=== PATIENT | male | born 1970 | race Caucasian/White ===

== ENCOUNTER 2020-08-01 14:10 | Observation (INO) | payer OTHER ==
[2020-08-01 15:04] LABS: #Basophils 0.1 thou/uL (0.0-0.2); #Eosinphils 0.1 thou/uL (0.0-0.7); #Lymphocytes 1.5 thou/uL (1.20-3.40); #Monocytes 0.5 thou/uL (0.11-0.59); #Neutrophils 3.3 thou/uL (1.40-6.50); %Basophils 1.1 % (0.0-1.0); %Eosinophils 1.6 % (0.0-10.0); %Lymphocytes 27.2 % (21.0-51.0); %Monocytes 8.9 % (0.0-10.0); %Neutrophils 61.2 % (42.0-75.0); Hemoglobin 16.3 g/dL (14.0-18.0); Mean Corpuscular Hemoglobin 31.8 pg (27.0-31.0); Mean Corpuscular Volume 93.5 fL (78.0-98.0); Platelet Count 226 thou/uL (130-400); RBC Distribution Width 13.5 % (11.5-14.5); Red Blood Cell (RBC) Count 5.12 mill/uL (4.70-6.10); White Blood Cell (WBC) Count 5.4 thou/uL (4.8-10.8)
[2020-08-01 15:24] LABS: ALT (SGPT) 38 U/L (8-55); AST (SGOT) 34 U/L (5-34); Albumin 4.2 g/dL (3.5-5.0); Alkaline Phosphatase 87 U/L (40-110); Anion Gap 17 mmol/L (10-20); BUN (Urea Nitrogen) 14 mg/dL (8.9-20.6); Bilirubin, Total 0.5 mg/dL (0.2-1.2); Calc. Creatinine Clearance 0 mL/min (70-130); Calcium 9.3 mg/dL (7.8-10.44); Carbon Dioxide 23 mmol/L (22-29); Chloride 103 mmol/L (98-107); Globulin 3.5 g/dL (2.4-3.5); Glucose 164 mg/dL (70-105); Potassium 3.9 mmol/L (3.5-5.1); Protein, Total 7.7 g/dL (6.0-8.3); Sodium 139 mmol/L (136-145)
--- NOTE | 2020-08-01 16:06 | RAD ---
XR Chest 1 View Portable History: Syncope Comparison: None. Findings: Heart size upper limits of normal. No significant pulmonary edema. No pneumothorax. No effu colton. No acute osseous abnormality. Impression: No acute intrathoracic abnormality.
--- NOTE | 2020-08-01 19:00 | PDOC.FPRHP ---
- History of Present Illness Chief Complaint: Chest pain, dizziness History of Present Illness: 50yo M presented tonight for chest pain and episode of lightheadedness. Pt states that last night he drank heavily and didn't not wear his CPAP. He notes historically when he does not wear his CPAP and he has multiple apneic spells he wakes up with left upper chest pain. He noticed this pain upon waking this morning and notes it was a little worse that what he would consider typical. He denies any other symptoms upon waking. Today while driving he noticed a 5 minute period of lightheadedness and feeling clammy. He got concerned and went to ED for evaluation. He notes a hx of significant PVC's that he follows with a car diologist for. He has had a failed ablation treatment about 5 years ago. He notes previous stress tests which were normal. He has had an EF as low as 40% on previous echo's but states his most recent one >1 year ago his EF improved but does not recall the number. Pt was experiencing a significant number of PVC's in the ED, at points almost every other beat. He denies experiencing any worsening chest pain, lightheadedness, shortness of breath, or palpitations with this. - Allergies/Adverse Reactions Allergies Allergy/AdvReac Type Severity Reaction Status Date / Time No Known Allergies Allergy Verified 08/02/20 06:19 - History PMHx: Reactive arthritis, HFrEF (resolved?), Obstructive sleep apnea PSHx: knee replacement w/ revisions, left finger, cyst removal FHx: Non contributory Social: Denies tobacco or drugs. Drinks 32 oz of liquor daily - Review of Systems General: denies: fever/chills, weight/appetite/sleep changes Eyes: denies: vision changes, other ENT: denies: nasal congestion, rhinorrhea Respiratory: denies: cough, shortness of breath Cardiovascular: reports: chest pain. denies: palpitation, edema Gastrointestinal: denies: nausea, vomiting, abdominal pain Genitourinary: denies: dysuria, polyuria Skin: denies: rashes, lesions Musculoskeletal: denies: pain, tenderness, stiffness Neurological: reports: other (lightheadedness). denies: numbness, syncope Psychological: reports: other (substance abuse) - Vital signs BP: 136/88, Pulse: 107, Resp: 18, Pain: 0, O2 sat: 98 on (Room Air), Wt: 108kg - Physical Exam Constitutional: NAD, awake, alert and oriented, well developed HEENT: EOMI, MMM Neck: supple, FROM Heart: normal S1/S2, no murmurs/rubs/gallops, no edema -Heart: Sinus rhythm with irregular but frequent PVC's Lungs: CTAB, no respiratory distress, good air movement Abdomen: soft, non-tender, bowel sounds present Musculoskeletal: normal structure, normal tone, ROM grossly normal Neurological: no focal deficit Skin: no rash/lesions, capillary refill <2 seconds Heme/Lymphatic: no unusual bruising or bleeding Psychiatric: normal mood and affect, intact recent and remote memory FMR H&P: Results - Labs Result Diagrams: 08/01/20 14:45 08/01/20 14:45 Lab results: WBC 5.4 thou/uL (4.8-10.8) 08/01/20 14:45 Hgb 16.3 g/dL (14.0-18.0) 08/01/20 14:45 Hct 47.8 % (42.0-52.0) 08/01/20 14:45 MCV 93.5 fL (78.0-98.0) 08/01/20 14:45 Plt Count 226 thou/uL (130-400) 08/01/20 14:45 Neutrophils % 61.2 % (42.0-75.0) 08/01/20 14:45 Sodium 139 mmol/L (136-145) 08/01/20 14:45 Potassium 3.9 mmol/L (3.5-5.1) 08/01/20 14:45 Chloride 103 mmol/L (98-107) 08/01/20 14:45 Carbon Dioxide 23 mmol/L (22-29) 08/01/20 14:45 BUN 14 mg/dL (8.9-20.6) 08/01/20 14:45 Creatinine 1.25 mg/dL (0.7-1.3) 08/01/20 14:45 Glucose 164 mg/dL (70-105) H 08/01/20 14:45 Calcium 9.3 mg/dL (7.8-10.44) 08/01/20 14:45 Total Bilirubin 0.5 mg/dL (0.2-1.2) 08/01/20 14:45 AST 34 U/L (5-34) 08/01/20 14:45 ALT 38 U/L (8-55) 08/01/20 14:45 Alkaline Phosphatase 87 U/L (40-110) 08/01/20 14:45 Serum Total Protein 7.7 g/dL (6.0-8.3) 08/01/20 14:45 Albumin 4.2 g/dL (3.5-5.0) 08/01/20 14:45 - EKG Interpretation EKG: Heart 90 bpm, sinus rhythm with occasional PVCs, voltage criteria for LVH, normal axis, T wave inversion in V6 and 1 aVL, overall impression is nonspecific. - Radiology Interpretation Chest x-ray Status: report reviewed by me (Borderline cardiomegaly) FMR H&P: A/P - Problem List (1) Chest pain Current Visit: Yes Status: Acute Code(s): R07.9 - CHEST PAIN, UNSPECIFIED (2) Alcohol abuse Current Visit: Yes Status: Acute Code(s): F10.10 - ALCOHOL ABUSE, UNCO MPLICATED (3) Obstructive sleep apnea Current Visit: Yes Status: Acute Code(s): G47.33 - OBSTRUCTIVE SLEEP APNEA (ADULT) (PEDIATRIC) (4) Elevated troponin Current Visit: Yes Status: Acute Code(s): R77.8 - OTHER SPECIFIED ABNORMALITIES OF PLASMA PROTEINS FMR H&P: Upper Level - Plan Chest pain - ACS r/o, elevated troponin - Troponin 0.04 initially, presumed to be representing demand ischemia likely 2/2 severe apneic episodes vs significant PVC frequency - Will continue to trend - Anticoagulate if becomes positive or sharp upward trend - No signs of fluid overload, in setting of recent excessive EtOH intake and tachycardia will gently fluid resuscitate and observe response - TTE - Exercise cardiolite stress - Telemetry monitoring Obstructive sleep apnea - CPAP nightly and when napping Alcohol abuse - No hx of withdrawal - ASE protocol to monitor - Encourage cessation VTE: SCD IVF: LR @ 200 x 1L Diet: HH Code: Full PCP: OOT Dispo: Admit to tele obs for ACS r/o and rhythm monitoring. Date/Time: 08/01/20 1900 Jac Morrison DO - PGY2 Addendum - Attending - Attending Attestation Date/Time: 08/01/202007 I personally evaluated the patient and discussed the management with Dr. Morrison. I agree with the History, Examination, Assessment and Plan documented above with any addition or exceptions noted below. Will trend cardiac enzymes. Monitor pvc's on tele. Get stress test and echo. Start ASE protocol.
[2020-08-01 19:08] LABS: Troponin I 0.049 ng/mL (< 0.028)
[2020-08-01] MEDS ORDERED: Acetaminophen 650 MG Suppository PR PRN (20:26)
[2020-08-01] MEDS ORDERED: Ondansetron ODT 4 MG TAB PO PRN (20:26)
[2020-08-01] MEDS ORDERED: Acetaminophen 325 MG TAB PO PRN (20:26)
[2020-08-01] MEDS ORDERED: Nitroglycerin 0.4 MG TAB (25 Tab Bottle) SL PRN (20:26)
[2020-08-01] MEDS ORDERED: Calcium Carbonate 500 MG ChewTAB PO PRN (20:26)
[2020-08-01] MEDS ORDERED: Sodium Chloride 0.9% 1,000 ML IV SCH (20:30)
[2020-08-01 22:27] LABS: Troponin I 0.056 ng/mL (< 0.028)
[2020-08-01 22:32] VITALS: BMI 30.8
[2020-08-02 01:13] LABS: Troponin I 0.059 ng/mL (< 0.028)
[2020-08-02 02:14] LABS: SARS-CoV-2 PCR by NAA Not Detected (NotDetected)
[2020-08-02 03:55] LABS: Hemoglobin A1c 5.3 % (4.0-6.0)
[2020-08-02 04:11] LABS: Cardiac Risk 3.1 (Less than 4.5)
[2020-08-02 04:16] LABS: Troponin I 0.048 ng/mL (< 0.028)
--- NOTE | 2020-08-02 05:28 | PDOC.FM ---
- Subjective Subjective: Patient is resting comfortably in bed. Reports that his chest pain is gone. He notes that when he takes his CPAP off at night while he is sleeping, he wakes up with some chest pain on the left. The night before last, he did not put it on at all due to drinking. He denies chest pain, abdominal pain, fever/chills. On tele patient has been having PVCs, about 22/min since arriving on the floor this morning. - Objective MAR Reviewed: Yes Vital Signs & Weight: Vital Signs (12 hours) Temp Pulse Resp BP Pulse Ox 08/01/20 22:38 98.2 F 103 H 18 154/107 H 99 Weight Weight 108.862 kg Result Diagrams: 08/01/20 14:45 08/01/20 14:45 Phys Exam - Physical Examination Constitutional: NAD HEENT: PERRLA, moist MMs Respiratory: no wheezing, clear to auscultation bilateral Cardiovascular: RRR, no significant murmur Gastrointestinal: soft, non-tender Musculoskeletal: no edema Neurological: non-focal, moves all 4 limbs Psychiatric: normal affect, A&O x 3 Skin: no rash Dx/Plan - Plan Plan: NSTEMI II - ACS r/o Presumed to be representing demand ischemia likely 2/2 severe apneic episodes vs significant PVC frequency Trops 0.04>0.49>0.056>0.048 PVCs this mornig 22/min No signs of fluid overload, in setting of recent excessive EtOH intake and tachycardia will gently fluid resuscitate and observe response Risk stratified with lipids, a1c and TSH - all wnl - Echo ordered, per patient history of EF 40% that improved, has host/hostess restaurant in [place] - Exercise cardiolite stress - Will consult cardiology - Telemetry monitoring Obstructive sleep apnea - CPAP nightly and when napping Alcohol abuse - No hx of withdrawal - ASE protocol to monitor - Encourage cessation Hx of Recurrent Infection with knee - resume abx Spondyloarthropathy - sees Tie Loader in [place] - resume home abx VTE: SCD IVF: LR @ 200 x 1L, then SL Diet: HH Code: Full PCP: OOT Dispo: Admitted to tele obs for ACS r/o and rhythm monitoring. LOS<48 hours pending testing results. Addendum - Attending - Attending Attestation Date/Time: 08/02/20 1228 I personally evaluated the patient and discussed the management with Dr. Mcleod. I agree with the History, Examination, Assessment and Plan documented above with any addition or exceptions noted below. Pt with very frequent PVC's. Consulting cardiology. Ordered stress test and echo.
[2020-08-02] MEDS ORDERED: Loratadine 10 MG TAB PO PRN (08:53)
[2020-08-02] MEDS ORDERED: traZODone HCl 50 MG TAB PO PRN (09:25)
[2020-08-02] MEDS ORDERED: Diazepam 5 MG TAB PO PRN (09:37)
[2020-08-02] MEDS ORDERED: Aspirin Chewable 81 MG TAB PO SCH (14:45)
[2020-08-02] MEDS: Aspirin Chewable 81 MG TAB PO SCH (15:10)
--- NOTE | 2020-08-02 16:58 | NM ---
MYOCARDIAL PERFUSION SCAN WITH SPECT IMAGING: History: Chest pain Technique: The examination was performed using 30.1 mCi 99M Technetium Sestamibi on the stress and 10 .5 mCi on the resting images. FINDINGS: This shows small fixed apical defect and some diminished perfusion which is symmetric between the str ess and rest images involving the inferior wall. I do not see any definite ischemic change. Ventricul ar chamber appears slightly dilated. WALL MOTION: There is generalized hypokinesis demonstrated. LEFT VENTRICULAR EJECTION FRACTION: The calculated LVEF is 28%. IMPRESSION: Global hypokinesis with markedly diminished ejection fraction of 28%. Correlation with echocardiogram is recommended. POS: OFF
[2020-08-02] MEDS: Lorazepam 1 MG TAB PO PRN ×2 (17:39→22:08)
[2020-08-02] MEDS ORDERED: Communication Order-Pharmacy FS SCH (17:45)
--- NOTE | 2020-08-02 18:38 | CON ---
DATE OF CONSULTATION: REASON FOR CONSULTATION: Presyncope. HISTORY OF PRESENT ILLNESS: Mr. Mullen is a 50-year-old gentleman, who was passing through to [place], [place]. He states he became lightheaded and dizzy. He pulled over the side of the road and did not feel well. Decided to proceed to the emergency room. He was subsequently admitted for presyncope. Mr. Mullen does have an extensive cardiac history. He has a history of PVCs, status post ablation. He also has been seen and evaluated by farm implement mechanic in [place], Dr. Jauregui. He is recently underwent a noninvasive stress study with LVEF 28% and an apical scar. PAST MEDICAL HISTORY: Alcohol abuse, sleep apnea, PVCs, arthritis, knee replacement. SOCIAL HISTORY: No current tobacco use. He does drink 32 ounces of liquor per day. REVIEW OF SYSTEMS: A 10-point review of systems is reviewed as above, otherwise negative. PHYSICAL EXAMINATION: VITAL SIGNS: Blood pressure 139/88, pulse 64, temperature 98.1. GENERAL: Patient is a pleasant male, who is in no acute distress. The patient appears his stated age. NEUROLOGIC: The patient is alert and oriented x3 with no focal neurologic deficits. HEENT: Sclerae without icterus. Mouth has moist mucous membranes with normal pallor. NECK: No JVD. Carotid upstroke brisk. No bruits bilaterally. LUNGS: Clear to auscultation with unlabored respirations. BACK: No scoliosis or kyphosis. CARDIAC: Regular rate and rhythm with normal S1 and S2. No S3 or S4 noted. No significant rubs, murmurs, thrills, or gallops noted throughout the precordium. PMI is not displaced. There is no parasternal heave. ABDOMEN: Soft, nontender, nondistended. No peritoneal signs present. No hepatosplenomegaly. No abnormal striae. EXTREMITIES: 2+ femoral and 2+ dorsalis pedis pulses. No cyanosis, clubbing, or edema. SKIN: No gross abnormalities. PERTINENT LABORATORY DATA: Hemoglobin 16.3, hematocrit 47.8, platelet count 226. Peak troponin 0.059. Echo Doppler shows LVEF 30% to 35%. IMPRESSION: 1. Dizziness, lightheadedness, and presyncope. 2. New onset cardiomyopathy. 3. Alcohol abuse. 4. History premature ventricular contractions. RECOMMENDATIONS: Etiology to patient's current is unknown. He certainly may have had PVCs or VT that may have caused his current symptoms. 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 He did have a scar noted on his recent stress test. Discussed proceeding with coronary angiography versus proceed with coronary angiography in [place]. The patient to proceed with coronary angiography here given his markedly diminished LVEF. I discussed procedure in full detail with Mr. Mullen. Risks include not limited to the following: , stroke, MN, need for emergency surgery, loss of limb, bleeding, and infection, as well as a reaction to the dye causing kidney failure and needing long-term dialysis. I also discussed the risks of PCI to include all of the above including coronary dissection and perforation in addition to acute stent thrombosis and restenosis. All questions were answered. Given the above, the patient agreed to proceed with procedure. Also discussed drug coated with nondrug coated stent placement. There were no contraindications to proceed if needed. We will also recommend LifeVest. We will also recommend iron studies and TSH. Job ID: [id number]
[2020-08-02] MEDS ORDERED: Montelukast Sodium 10 mg Tablet PO SCH (21:00)
[2020-08-02] MEDS: Sodium Chloride 0.9% 1,000 ML IV SCH (22:07)
--- NOTE | 2020-08-03 05:48 | PDOC.FM ---
- Subjective Subjective: No acute overnight events. Continues to have PVCs on tele. No lightheadedness or presyncope. No chest pain. No SOB. Plan for cath today. - Objective Vital Signs & Weight: Vital Signs (12 hours) Temp Pulse Resp BP BP Pulse Ox 08/03/20 03:50 97.6 F 51 L 20 140/105 H 140/105 H 98 08/03/20 01:57 98 08/02/20 22:03 98.9 F 95 18 139/77 96 08/02/20 21:54 139/77 Weight Weight 108.862 kg I&O: 08/01/20 08/02/20 08/03/20 06:59 06:59 06:59 Intake Total 700 Balance 700 Result Diagrams: 08/03/20 08:17 08/03/20 08:17 Phys Exam - Physical Examination Constitutional: NAD HEENT: moist MMs, sclera anicteric Neck: supple Respiratory: no wheezing, no rales, clear to auscultation bilateral Cardiovascular: RRR (with frequent PVCs) Gastrointestinal: soft, non-tender, no distention, positive bowel sounds Musculoskeletal: no edema, pulses present Neurological: non-focal, normal sensation, moves all 4 limbs Psychiatric: normal affect, A&O x 3 Skin: no rash, normal turgor, cap refill <2 seconds Dx/Plan - Plan Plan: NSTEMI II - ACS r/o Presumed to be representing demand ischemia likely 2/2 severe apneic episodes vs significant PVC frequency Trops 0.04>0.49>0.056>0.048 No signs of fluid overload Risk stratified with lipids, a1c and TSH - all wnl - Cardiology consulted, plan for cath today - Will likely need life vest upon discharge Obstructive sleep apnea - CPAP nightly and when napping Alcohol abuse - No hx of withdrawal - ASE protocol to monitor, has been wnl - Encourage cessation Hx of Recurrent Infection with knee - resume abx Spondyloarthropathy - sees Office Machinery Or Equipment Installer in [place] - resume home abx VTE: SCD IVF: SL Diet: HH Code: Full PCP: OOT Dispo: Pending cardiac workup Addendum - Attending - Attending Attestation Date/Time: 08/03/20 0001 I personally evaluated the patient and discussed the management with Dr. Soliz. I agree with the History, Examination, Assessment and Plan documented above with any addition or exceptions noted below. Awaiting cards recs. per patient no stent placed. possible d/c later today.
[2020-08-03] MEDS: Carvedilol 3.125 MG TAB PO SCH ×2 (08:08→18:26)
[2020-08-03 08:33] LABS: #Basophils 0.1 thou/uL (0.0-0.2); #Eosinphils 0.1 thou/uL (0.0-0.7); #Lymphocytes 1.5 thou/uL (1.20-3.40); #Monocytes 0.8 thou/uL (0.11-0.59); %Basophils 0.9 % (0.0-1.0); %Lymphocytes 20.5 % (21.0-51.0); %Monocytes 10.1 % (0.0-10.0); %Neutrophils 67.5 % (42.0-75.0); Hemoglobin 16.9 g/dL (14.0-18.0); Mean Corpuscular HGB CONC 32.7 g/dL (32.0-36.0); Mean Corpuscular Hemoglobin 31.3 pg (27.0-31.0); Mean Corpuscular Volume 95.6 fL (78.0-98.0); Platelet Count 220 thou/uL (130-400); RBC Distribution Width 13.5 % (11.5-14.5); Red Blood Cell (RBC) Count 5.39 mill/uL (4.70-6.10); White Blood Cell (WBC) Count 7.5 thou/uL (4.8-10.8)
[2020-08-03] MEDS ORDERED: Lidocaine 1% (PF) 30 ML VIAL ONE (08:45)
[2020-08-03 08:54] LABS: Anion Gap 12 mmol/L (10-20); BUN (Urea Nitrogen) 13 mg/dL (8.9-20.6); Calc. Creatinine Clearance 117 mL/min (70-130); Calcium 8.9 mg/dL (7.8-10.44); Carbon Dioxide 27 mmol/L (22-29); Chloride 103 mmol/L (98-107); Glucose 127 mg/dL (70-105); Potassium 4.2 mmol/L (3.5-5.1); Sodium 138 mmol/L (136-145)
[2020-08-03] MEDS ORDERED: Heparin 10,000 UNITS/ 10 ML VIAL ONE (08:56)
[2020-08-03] MEDS ORDERED: Verapamil 5 MG/2 ML VIAL ONE (08:56)
[2020-08-03] MEDS ORDERED: Nitroglycerin 100MG/250ML BOT 250 ML ONE (08:56)
[2020-08-03] MEDS ORDERED: Multivit, Chewable SF 1 TAB PO SCH (09:00)
[2020-08-03] MEDS ORDERED: Thiamine 100 MG TAB PO SCH (09:00)
[2020-08-03] MEDS ORDERED: Folic Acid 1 MG TAB PO SCH (09:00)
[2020-08-03] MEDS ORDERED: Cefadroxil Hydrate 250 mg/5 ml Suspensio PO SCH (09:00)
[2020-08-03] MEDS ORDERED: Midazolam HCl 2 mg/2 ml Vial ONE (09:13)
[2020-08-03] MEDS ORDERED: Fentanyl 100 MCG/2 ML VIAL ONE (09:13)
[2020-08-03] MEDS ORDERED: Iopamidol 370 76% 100 ML VIAL ONE (09:27)
[2020-08-03] MEDS ORDERED: Acetaminophen/Codeine 30-300mg Tablet PO PRN ×2 (09:36)
[2020-08-03] MEDS ORDERED: Nitroglycerin 0.4 MG TAB (25 Tab Bottle) SL PRN (09:36)
[2020-08-03] MEDS ORDERED: Sodium Chloride 0.9% 200 ML IV PRN (09:36)
[2020-08-03] MEDS ORDERED: Sodium Chloride 0.9% 1,000 ML IV SCH (09:45)
[2020-08-03] MEDS: Aspirin Chewable 81 MG TAB PO SCH (10:40)
[2020-08-03] MEDS: Lorazepam 1 MG TAB PO PRN (10:43)
[2020-08-03] MEDS ORDERED: CEFADROXIL 1 GM PO SCH (11:15)
[2020-08-03] MEDS: Sodium Chloride 0.9% 1,000 ML IV SCH (11:16)
[2020-08-03 12:44] LABS: Iron 128 ug/dL (65-175); Iron Binding Capacity, Total 425 mcg/dL (261-462)
[2020-08-03 16:29] VITALS: BP 137/63; TEMP 98.1
[2020-08-04] MEDS ORDERED: CEFADROXIL 1 GM PO SCH (09:00)
--- NOTE | 2020-08-04 12:44 | DIS ---
DATE OF ADMISSION: 08/01/2020 DATE OF DISCHARGE: 08/03/2020 RESIDENT: Kdaie Soliz DO ADMITTING ATTENDING: Charmaine Mc MD DISCHARGE ATTENDING: Refugio Perez MD CONSULT: Cardiology, Dr. Elias. PROCEDURES: Echocardiogram, nuclear stress test, and cardiac catheterization. PRIMARY DIAGNOSIS: Non-ST segment elevation myocardial infarction type 2. SECONDARY DIAGNOSES: Obstructive sleep apnea, alcohol abuse, recurrent infection of the knee, spondyloarthropathy, alcoholic cardiomyopathy, premature ventricular contractions. DISCHARGE MEDICATIONS: 1. Singulair 10 mg p.o. at bedtime. 2. Arimidex 0.5 mg p.o. daily. 3. Trazodone 100 mg p.o. at bedtime p.r.n. 4. Enbrel 50 mg subcu q.7 days. 5. Diclofenac/misoprostol 50 mg/200 mcg tablet one p.o. daily. 6. Zyrtec 10 mg p.o. p.r.n. 7. Cefadroxil 1 g p.o. daily. 8. Aspirin 81 mg p.o. daily. 9. Carvedilol 3.125 mg p.o. b.i.d. with meals. 10. Folic acid 1 mg p.o. daily. 11. Thiamine 100 mg p.o. daily. DISCONTINUED MEDICATIONS: None. HPI/HOSPITAL COURSE: Mr. Mullen is a 50-year-old gentleman, who is admitted after experiencing symptoms of chest pain and lightheadedness while driving his vehicle, reports that the evening prior to onset of his symptoms, he drank large amounts of alcohol and did not wear his CPAP to bed. On ER evaluation, his EKG revealed a sinus rhythm with occasional PVCs, left ventricular hypertrophy, and T-wave inversions in V6, I, and aVL. His chest pain had resolved at that time. His troponin was elevated to an indeterminate range and continued to trend upwards slightly peaking at 0.059 before trending back downward. It was suspected that this mildly elevated troponin was most likely due to demand ischemia due to either apnea from not wearing his CPAP or to significant PVC frequency as the patient does report a history of frequent PVCs requiring ablation in the past. A stress test was performed revealing global hypokinesis with an ejection fraction of 28%, as well as a fixed apical defect with diminished perfusion. No definite ischemic changes were seen on the stress test. Because of the decreased ejection fraction on the stress test, an echocardiogram was performed revealing an ejection fraction of 30% to 35% and again hypokinesis of the inferior and anterior wall of the left ventricle. Cardiology was consulted and cardiac catheterization was performed. No interventions were performed, during the cardiac catheterization. On the recommendation of Cardiology, the patient had a LifeVest arranged. Iron studies and TSH were also checked, which were within normal limits. After catheterization and the absence of continued symptoms and after being fitted for a LifeVest, the patient was discharged to home in stable condition. DISPOSITION: Stable. DISCHARGE INSTRUCTIONS: 1. Location: Home. 2. Diet: Heart healthy diet. 3. Activity as tolerated. 4. Follow up either with Dr. 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 Job ID: [id number]
[2020-08-05] MEDS ORDERED: Etanercept [Enbrel] 50 MG/ML Syringe SC SCH (09:00)
--- NOTE | 2020-08-15 13:21 | EKG ---
Test Reason : Blood Pressure : / mmHG Vent. Rate : 098 BPM Atrial Rate : 098 BPM P-R Int : 160 ms QRS Dur : 094 ms QT Int : 338 ms P-R-T Axes : 066 -19 251 degrees QTc Int : 431 ms Sinus rhythm with occasional Premature ventricular complexes Minimal voltage criteria for LVH, may be normal variant Nonspecific ST and T wave abnormality Abnormal ECG Confirmed by FELICIANO VELA, KIRA ([id number]), technical writer and editor DOM SO ([id number]) on 08/15/2020 1:21:18 PM Referred By: Confirmed By:KIRA WIGGINS MD
== END 2020-08-03 18:15 | disposition home or self-care (01) ==
LOC: ERS 14:10 → EEVIPCON 17:17 → ERHOLD 17:17 → 2SE 08-02 05:14
PROVIDERS: ADMIT Family Medicine; ATTEND Family Medicine
PROC: 4A023N7 Measurement of Cardiac Sampling and Pressure, Left Heart, Percutaneous Approach (ICD-10-PCS; principal; 2020-08-03)
PROC: B2111ZZ Fluoroscopy of Multiple Coronary Arteries using Low Osmolar Contrast (ICD-10-PCS; 2020-08-03)
DX: I21.A1 Myocardial infarction type 2 (principal); I25.10 Atherosclerotic heart disease of native coronary artery without angina pectoris; G47.33 Obstructive sleep apnea (adult) (pediatric); F10.10 Alcohol abuse, uncomplicated; M47.819 Spondylosis without myelopathy or radiculopathy, site unspecified; I42.6 Alcoholic cardiomyopathy; I49.3 Ventricular premature depolarization; I50.20 Unspecified systolic (congestive) heart failure; I08.1 Rheumatic disorders of both mitral and tricuspid valves; R55 Syncope and collapse; Z79.811 Long term (current) use of aromatase inhibitors; Z79.899 Other long term (current) drug therapy; Z20.822 Contact with and (suspected) exposure to COVID-19
CPT/HCPCS: 36415; 71045; 78452; 80048; 80053; 80061; 82728; 83036; 83540; 83550; 84443; 84484; 85025; 87635; 93005; 93017; 93306; 93454; 94660; 94760; 97139; 99152; A9500; G0378; J1644; J2001; J2250; J3010; Q9967; U0003; U0005